=== PATIENT | female | born 1950 | race Caucasian/White ===

== ENCOUNTER → 2019-03-28 15:50 | Outpatient (CLI) | payer MEDICARE, SELFPAY ==
--- NOTE | 2019-03-28 | DI.MG.S_ITS ---
BILATERAL DIGITAL SCREENING MAMMOGRAM 3D/2D WITH CAD: 03/28/2019 CLINICAL: Routine screening. Family history of breast cancer. Comparison is made to exams dated: 07/11/2013 mammogram and 06/24/2012 mammogram - [facility]. The tissue of both breasts is heterogeneously dense. This may lower the sensitivity of mammography. Current study was also evaluated with a Computer Aided Detection (CAD) system. No significant masses, calcifications, or other findings are seen in either breast. There has been no significant interval change. IMPRESSION: NEGATIVE There is no mammographic evidence of malignancy. A 1 year screening mammogram is recommended. This exam was interpreted at Station ID: [id number]. NOTE: For mammograms, a report in lay terms will be sent to the patient. Approximately 15% of breast malignancies will not be visualized mammographically. In the management of a palpable breast mass, a negative mammogram must not discourage biopsy of a clinically suspicious lesion. Electronically Signed By: Amena beanvides/allen:03/29/2019 09:04:13 letter sent: Normal Exam ACR BI-RADS Category 1: Negative [id number]
[2019-03-28 16:27] LABS: Add Manual Diff / Slide Review NO; Basophils Absolute Auto 100 /uL (0-100); Basophils Percent Auto 1.1 % (0-2); Eosinophils Absolute Auto 100 /uL (0-450); Eosinophils Percent Auto 0.7 % (2-4); Hematocrit 44.6 % (36-46); Hemoglobin 14.8 g/dL (12.0-16.0); Lymphocytes Absolute Auto 4500 /uL (1100-4500); Lymphocytes Percent Auto 40.4 % (25-40); Mean Corpuscular HGB Conc 33.1 % (30-36); Mean Corpuscular Hemoglobin 30.1 PG (26-34); Mean Corpuscular Volume 90.9 fL (80-100); Monocytes Absolute Auto 700 /uL (0-900); Monocytes Percent Auto 5.9 % (3-14); Neutrophils Absolute Auto 5800 /uL (1500-7000); Neutrophils Percent Auto 51.9 % (50-75); Platelet Count 143 X10^3/uL (150-400); Red Cell Distribution Width 12.4 % (11.6-14.8); White Blood Cell Count 11.1 X10^3/uL (4.5-11.0)
[2019-03-28 17:27] LABS: Alanine Aminotransferase 19 IU/L (9-52); Albumin 4.5 g/dL (3.5-5.0); Albumin Globulin Ratio 1.4 (1.0-2.8); Alkaline Phosphatase 114 U/L (38-126); Aspartate Aminotransferase 22 IU/L (14-36); BUN Creatinine Ratio 18.3 (6-22); Bilirubin Total 0.5 mg/dL (0.2-1.3); Blood Urea Nitrogen 11 mg/dL (7-17); Calcium 9.9 mg/dL (8.4-10.2); Carbon Dioxide 24 mmol/L (22-32); Chloride 106 mmol/L (98-107); Cholesterol 176 mg/dL (140-199); Estimated Glomerular Filt Rate > 60.0 mL/min (>60); Globulin 3.2 g/dL (1.7-4.1); Glucose 93 mg/dL (80-110); HDL Cholesterol 50 mg/dL (40-60); HEMOLYSIS < 15 (0-50); LDL Cholesterol Calculated 98 mg/dL (<100); Potassium 4.1 mmol/L (3.4-5.1); Sodium 140 mmol/L (137-145); Total Protein 7.7 g/dL (6.3-8.2); Triglycerides 142 mg/dL (35-150)
[2019-03-28 17:57] LABS: Thyroid Stimulating Hormone 4.05 uIU/mL (0.47-4.68)
== END ==
PROVIDERS: PCP Family Medicine; Visit Provider Family Medicine
DX: Z12.31 Encounter for screening mammogram for malignant neoplasm of breast (principal); Z80.3 Family history of malignant neoplasm of breast; E78.5 Hyperlipidemia, unspecified; Z13.29 Encounter for screening for other suspected endocrine disorder; Z51.81 Encounter for therapeutic drug level monitoring
CPT/HCPCS: 36415; 77063; 77067; 80053; 80061; 84443; 85025

== ENCOUNTER → 2019-04-07 16:43 | Outpatient (ROUT) | payer MEDICARE, SELFPAY ==
[2019-04-07 17:05] LABS: Appearance Urine UA CLEAR; Bilirubin Urine UA NEGATIVE (NEGATIVE); Color Urine UA YELLOW; Glucose Urine UA NEGATIVE (Negative); Ketones Urine UA NEGATIVE (NEGATIVE); Leukocyte Esterase Urine UA NEGATIVE (NEGATIVE); Nitrite Urine UA NEGATIVE (Negative); Occult Blood Urine UA NEGATIVE (Negative); Protein Urine UA NEGATIVE (Negative); Urobilinogen Urine UA 0.2 E.U./dL (0.2); pH Urine UA 6.5 (4.5-8.0)
== END ==
PROVIDERS: PCP Family Medicine; Visit Provider Family Medicine
DX: E78.5 Hyperlipidemia, unspecified (principal); Z13.29 Encounter for screening for other suspected endocrine disorder; Z51.81 Encounter for therapeutic drug level monitoring
CPT/HCPCS: 81003

== ENCOUNTER → 2020-03-04 13:11 | Outpatient (CLI) | payer MEDICARE, SELFPAY ==
[2020-03-04 13:59] LABS: Add Manual Diff / Slide Review NO; Basophils Absolute Auto 100 /uL (0-100); Basophils Percent Auto 0.6 % (0-2); Eosinophils Absolute Auto 100 /uL (0-450); Eosinophils Percent Auto 0.7 % (2-4); Hematocrit 42.6 % (36-46); Hemoglobin 14.8 g/dL (12.0-16.0); Lymphocytes Absolute Auto 2800 /uL (1100-4500); Lymphocytes Percent Auto 29.6 % (25-40); Mean Corpuscular HGB Conc 34.8 % (30-36); Mean Corpuscular Hemoglobin 31.5 PG (26-34); Mean Corpuscular Volume 90.5 fL (80-100); Monocytes Absolute Auto 600 /uL (0-900); Monocytes Percent Auto 6.3 % (3-14); Neutrophils Absolute Auto 6000 /uL (1500-7000); Neutrophils Percent Auto 62.8 % (50-75); Platelet Count 132 X10^3/uL (150-400); Red Cell Distribution Width 12.4 % (11.6-14.8); White Blood Cell Count 9.5 X10^3/uL (4.5-11.0)
[2020-03-04 14:13] LABS: Alanine Aminotransferase 16 IU/L (<35); Albumin 4.6 g/dL (3.5-5.0); Albumin Globulin Ratio 1.4 (1.0-2.8); Alkaline Phosphatase 99 U/L (38-126); Aspartate Aminotransferase 28 IU/L (14-36); BUN Creatinine Ratio 16.9 (6-22); Bilirubin Total 0.5 mg/dL (0.2-1.3); Blood Urea Nitrogen 11 mg/dL (7-17); Calcium 10.1 mg/dL (8.4-10.2); Carbon Dioxide 29 mmol/L (22-32); Chloride 104 mmol/L (98-107); Cholesterol 178 mg/dL (140-199); Estimated Glomerular Filt Rate > 60.0 mL/min (>60); Globulin 3.4 g/dL (1.7-4.1); Glucose 128 mg/dL (80-110); HDL Cholesterol 41 mg/dL (40-60); HEMOLYSIS < 15 (0-50); LDL Cholesterol Calculated 107 mg/dL (<100); Potassium 4.6 mmol/L (3.4-5.1); Sodium 139 mmol/L (137-145); Triglycerides 149 mg/dL (35-150)
[2020-03-04 14:41] LABS: Thyroid Stimulating Hormone 0.32 uIU/mL (0.47-4.68)
== END ==
PROVIDERS: Referring Provider Family Medicine; Visit Provider Family Medicine
DX: I10 Essential (primary) hypertension (principal); E78.5 Hyperlipidemia, unspecified
CPT/HCPCS: 36415; 80053; 80061; 84443; 85025

== ENCOUNTER → 2020-03-04 15:38 | Outpatient (CLI) | payer MEDICARE, SELFPAY ==
--- NOTE | 2020-03-04 15:40 | DI.RAD.S_ITS ---
PROCEDURE: XR HIP W PEL IF DONE LT MIN 4V INDICATIONS: back/hip pain TECHNIQUE: AP pelvis with lateral view(s) of the left and right hip(s). COMPARISON: None. FINDINGS: Bones: No fractures or dislocations. Pelvic ring appears intact. No suspicious bony lesions. Lower lumbar spondylosis. Mild hip joint degeneration. Soft tissues: The visualized bowel gas pattern is normal. No suspicious soft tissue calcifications. IMPRESSION: Mild bilateral hip joint degeneration Dictated by: Keyur Butler M.D. on 03/04/2020 at 16:04 Approved by: Keyur Butler M.D. on 03/04/2020 at 16:05
--- NOTE | 2020-03-04 15:40 | DI.RAD.S_ITS ---
PROCEDURE: XR LUMBAR SPINE 2-3V INDICATIONS: back/hip pain TECHNIQUE: 3 views of the lumbar spine were acquired. COMPARISON: [facility], , L-SPINE 2-3 VIEWS, 05/09/2008, 13:00. FINDINGS: Bones: No fracture or focal osseous destruction. Multilevel degenerative endplate sclerosis and spurring. Diffuse facet arthropathy. Straightening of the normal lordotic curvature. Grade 1 anterolisthesis of L4 on L5. Moderate narrowing of the L2-L3 disc space. Mild narrowing of the remaining lumbar disc spaces. Levoscoliosis Soft tissues: Scattered vascular calcifications seen in the aorta. IMPRESSION: Multilevel lumbar spondylosis and facet arthropathy most pronounced at L2-L3. This is progressed since 05/09/08 Levoscoliosis, also progressed. Dictated by: Keyur Butler M.D. on 03/04/2020 at 16:05 Approved by: Keyur Butler M.D. on 03/04/2020 at 16:07
== END ==
PROVIDERS: PCP Family Medicine; Referring Provider Family Medicine; Visit Provider Family Medicine
DX: M47.26 Other spondylosis with radiculopathy, lumbar region (principal); M16.0 Bilateral primary osteoarthritis of hip; M25.559 Pain in unspecified hip; M41.9 Scoliosis, unspecified; M43.16 Spondylolisthesis, lumbar region
CPT/HCPCS: 72100; 73522

== ENCOUNTER → 2020-12-13 17:09 | Outpatient (CLI) | payer MEDICARE, SELFPAY ==
[2020-12-13 18:49] LABS: Alanine Aminotransferase 14 IU/L (<35); Albumin 4.4 g/dL (3.5-5.0); Albumin Globulin Ratio 1.3 (1.0-2.8); Alkaline Phosphatase 87 U/L (38-126); Aspartate Aminotransferase 24 IU/L (14-36); BUN Creatinine Ratio 24.2 (6-22); Bilirubin Total 0.2 mg/dL (0.2-1.3); Blood Urea Nitrogen 15 mg/dL (7-17); Calcium 9.9 mg/dL (8.4-10.2); Carbon Dioxide 29 mmol/L (22-32); Chloride 106 mmol/L (98-107); Cholesterol 161 mg/dL (140-199); Estimated Glomerular Filt Rate > 60.0 mL/min (>60); Globulin 3.3 g/dL (1.7-4.1); Glucose 103 mg/dL (80-110); HDL Cholesterol 46 mg/dL (40-60); HEMOLYSIS < 15 (0-50); LDL Cholesterol Calculated 89 mg/dL (<100); Sodium 139 mmol/L (137-145); Total Protein 7.7 g/dL (6.3-8.2); Triglycerides 129 mg/dL (35-150)
[2020-12-13 18:51] LABS: Hemoglobin A1C% w Est Avg Glu 5.4 % (4.0-6.0)
[2020-12-13 19:17] LABS: TSH w/ Reflex to FT4 1.76 uIU/mL (0.47-4.68)
== END ==
PROVIDERS: PCP Family Medicine; Referring Provider Family Medicine; Visit Provider Family Medicine
DX: E78.5 Hyperlipidemia, unspecified (principal); R73.09 Other abnormal glucose; I10 Essential (primary) hypertension; Z13.29 Encounter for screening for other suspected endocrine disorder
CPT/HCPCS: 36415; 80053; 80061; 83036; 84443

== ENCOUNTER → 2022-03-26 16:50 | Outpatient (CLI) | payer MEDICARE, SELFPAY ==
--- NOTE | 2022-03-26 16:52 | DI.RAD.S_ITS ---
PROCEDURE: XR CHEST 2V INDICATIONS: daily smoker, wt loss TECHNIQUE: 2 views of the chest were acquired. COMPARISON: None. FINDINGS: Surgical changes and devices: None. Lungs and pleura: Lungs are clear. No pleural effusions or pneumothorax. Mediastinum: Mediastinal contours are normal. Heart size is normal. Bones and chest wall: No suspicious bony abnormalities. Soft tissues appear unremarkable. IMPRESSION: No acute cardiopulmonary abnormality. Dictated by: George Pena M.D. on 03/26/2022 at 20:46 Approved by: George Pena M.D. on 03/26/2022 at 20:57
[2022-03-26 17:55] LABS: Add Manual Diff / Slide Review NO; Basophils Absolute Auto 100 /uL (0-100); Basophils Percent Auto 0.8 % (0-2); Eosinophils Absolute Auto 100 /uL (0-450); Eosinophils Percent Auto 0.6 % (2-4); Hematocrit 43.4 % (36-46); Hemoglobin 14.9 g/dL (12.0-16.0); Lymphocytes Absolute Auto 3100 /uL (1100-4500); Lymphocytes Percent Auto 36.2 % (25-40); Mean Corpuscular HGB Conc 34.2 % (30-36); Mean Corpuscular Hemoglobin 29.8 PG (26-34); Mean Corpuscular Volume 86.9 fL (80-100); Monocytes Absolute Auto 700 /uL (0-900); Monocytes Percent Auto 7.8 % (3-14); Neutrophils Absolute Auto 4800 /uL (1500-7000); Neutrophils Percent Auto 54.6 % (50-75); Platelet Count 178 X10^3/uL (150-400); Red Blood Cell Count 4.99 X10^6/uL (4.0-5.2); Red Cell Distribution Width 13.2 % (11.6-14.8); White Blood Cell Count 8.7 X10^3/uL (4.5-11.0)
[2022-03-26 18:54] LABS: Alanine Aminotransferase 10 IU/L (<35); Albumin 4.5 g/dL (3.5-5.0); Albumin Globulin Ratio 1.3 (1.0-2.8); Alkaline Phosphatase 111 U/L (38-126); Aspartate Aminotransferase 21 IU/L (14-36); BUN Creatinine Ratio 13.4 (6-22); Bilirubin Total 0.5 mg/dL (0.2-1.3); Blood Urea Nitrogen 13 mg/dL (7-17); Carbon Dioxide 28 mmol/L (22-32); Chloride 100 mmol/L (98-107); Estimated Glomerular Filt Rate > 60 mL/min (>60); Globulin 3.4 g/dL (1.7-4.1); Glucose 111 mg/dL (80-110); HEMOLYSIS < 15 (0-50); Potassium 3.9 mmol/L (3.4-5.1); Sodium 136 mmol/L (137-145); Total Protein 7.9 g/dL (6.3-8.2)
[2022-03-27 03:33] LABS: TSH w/ Reflex to FT4 1.98 uIU/mL (0.47-4.68)
== END ==
PROVIDERS: PCP Family Medicine; Referring Provider Family Medicine; Visit Provider Family Medicine
DX: I10 Essential (primary) hypertension (principal); E78.5 Hyperlipidemia, unspecified; F41.9 Anxiety disorder, unspecified; R63.4 Abnormal weight loss
CPT/HCPCS: 36415; 71046; 80053; 84443; 85025

== ENCOUNTER 2024-05-30 16:25 | Emergency (ER) | payer MEDICARE, SELFPAY ==
[2024-05-30 17:06] VITALS: BP 138/66; PULSE 77; RESP 16; TEMP 36.2; O2SAT 98; BMI 21.0
--- NOTE | 2024-05-30 17:35 | DI.RAD.S_ITS ---
PROCEDURE: XR HIP W PEL IF DONE RT 2V INDICATIONS: hip pain after fall 3 weeks ago TECHNIQUE: AP pelvis with lateral view(s) of the right hip(s). COMPARISON: [facility], , XR HIP W PEL IF DONE TAMMI 3TO4V, 03/04/2020, 15:36. FINDINGS: Bones: No gross acute fractures or dislocations. [id number] bilateral hip joint osteoarthritic changes are seen. No evidence of avascular necrosis of femoral head. Pelvic ring appears intact. No suspicious bony lesions. Soft tissues: The visualized bowel gas pattern is normal. No suspicious soft tissue calcifications. IMPRESSION: No gross acute right hip fracture or dislocation. [id number] bilateral hip joint osteoarthritis. No evidence of avascular necrosis. Dictated by: Robby Davis M.D. on 05/30/2024 at 18:21 Approved by: Robby Davis M.D. on 05/30/2024 at 18:22
--- NOTE | 2024-05-30 17:35 | ED.LOWEXIN ---
HPI - Extremity Injury (Lower) <Hien White PA-C - Last Filed: 05/30/24 18:36> General Chief Complaint: Extremity Injury, Lower Stated Complaint: Hip Px, Need XRay Time Seen by Provider: 05/30/24 17:29 Source: patient Mode of arrival: Family Vehicle History of Present Illness HPI Narrative: pt rolled out of bed 3 weeks ago and landed on her right hip pain since. has tried advil no help, heat, ice, topical all wit limited relief. MD complaint: hip injury and fall Place: home Related Data Previous Rx's Medication Instructions Recorded tolterodine 4 mg capsule,extended See Rx Instructions .Route 12/30/21 release 24 hr .COMPLEX #90 caps tramadol 50 mg tablet 50 mg PO BEDTIME #30 tabs 01/05/22 cyclobenzaprine 10 mg tablet See Rx Instructions .Route 01/25/24 .COMPLEX #90 tabs rosuvastatin 40 mg tablet See Rx Instructions .Route 01/25/24 .COMPLEX #90 tabs trazodone 100 mg tablet See Rx Instructions .Route 01/25/24 .COMPLEX #180 tabs lisinopril 10 1 tab PO DAILY #30 tabs 05/11/24 mg-hydrochlorothiazide 12.5 mg tablet paroxetine HCl 40 mg tablet See Rx Instructions .Route 05/11/24 .COMPLEX #30 tabs prednisolone sodium phosphate 10 10 mg PO DAILY #12 tabs 05/30/24 mg disintegrating tablet Allergies Allergy/AdvReac Type Severity Reaction Status Date / Time aspirin [ASPIRIN] Allergy Mild Verified 04/02/23 16:15 Penicillins [PENICILLINS] Allergy Mild Verified 04/02/23 16:15 Sulfa (Sulfonamide Allergy Mild Verified 04/02/23 16:15 Antibiotics) [SULFA (SULFONAMIDE ANTIBIOTICS)] sulfite [SULFITE] Allergy Mild Verified 04/02/23 16:15 bupropion [From Wellbutrin] AdvReac anxiety, Verified 04/02/23 16:15 not acting herself Review of Systems <Hien White PA-C - Last Filed: 05/30/24 18:36> Review of Systems Narrative: neg except as above Constitutional Comments: healthy, height weight proportioned female Musculoskeletal Musculoskeletal: Reports arthralgias and Reports myalgias Patient History <Hien White PA-C - Last Filed: 05/30/24 18:36> Medical History Medicare annual wellness visit, subsequent Weight loss Well adult exam Insomnia Venous stasis Seborrheic keratosis Hypertension Ganglion cyst Hypertension Overactive bladder Hyperlipemia Scoliosis Depression Surgical History Status post breast biopsy Status post hysterectomy Status post appendectomy Family History Father Heart disease Mother Hypertension Social History Smoking Status: Current every day smoker Tobacco: How many years used: 50 quit status: not considering quitting alcohol intake: never substance use type: does not use Smoking Status: Current every day smoker Exam <Hien White PA-C - Last Filed: 05/30/24 18:36> Initial Vital Signs Initial Vital Signs: Vital Signs Temperature 97.2 F L 05/30/24 17:06 Pulse Rate 77 05/30/24 17:06 Respiratory Rate 16 05/30/24 17:06 Blood Pressure 138/66 05/30/24 17:06 Pulse Oximetry 98 05/30/24 17:06 Oxygen Delivery Method Room Air 05/30/24 17:06 Const General: cooperative, healthy appearing, comfortable and well developed Nutritional Appearance: average body habitus and well nourished Orientation: Orientation Eyes Pupils: PERRL EOM: EOM intact bilaterally Neuro General: patient alert, patient oriented x3, gait normal and moves all extremities Speech: speech normal Gait: normal gait Extrem Right lower extremity: normal to inspection, normal capillary refill and hip/thigh Details: normal to inspection, tenderness (right hip and lower pelvis) and normal ROM Psych Appearance: grossly normal and well kempt Speech and Movement: speech and movement normal Mood: congruent mood Affect: normal affect Attitude: cooperative Thought Process: normal Judgment: judgment good <Geremias Barton DO - Last Filed: 05/30/24 18:42> Initial Vital Signs Initial Vital Signs: Vital Signs Temperature 97.2 F L 05/30/24 17:06 Pulse Rate 77 05/30/24 17:06 Respiratory Rate 16 05/30/24 17:06 Blood Pressure 138/66 05/30/24 17:06 Pulse Oximetry 98 05/30/24 17:06 Oxygen Delivery Method Room Air 05/30/24 17:06 Course <Hien White PA-C - Last Filed: 05/30/24 18:36> Orders Ordered: ED Orders 05/30/24 17:35 XR hip w pel if done RT 2V Stat Vital Signs Vital signs: Vital Signs - 8 hr 05/30/24 17:06 Temperature 97.2 F L Pulse Rate 77 Respiratory Rate 16 Blood Pressure 138/66 Pulse Oximetry 98 Oxygen Delivery Method Room Air <Geremias Barton DO - Last Filed: 05/30/24 18:42> Orders Ordered: ED Orders 05/30/24 17:35 XR hip w pel if done RT 2V Stat Vital Signs Vital signs: Vital Signs - 8 hr 05/30/24 17:06 Temperature 97.2 F L Pulse Rate 77 Respiratory Rate 16 Blood Pressure 138/66 Pulse Oximetry 98 Oxygen Delivery Method Room Air MDM - Extremity Injury (Lower) <Hien White PA-C - Last Filed: 05/30/24 18:36> Differential Diagnosis Differential diagnosis: Likely other (right hip bursitis) MDM Narrative Medical decision making narrative: Pt is a 73 year old female who rolled out of bed 3 weeks ago and landed on the floor hitting her right hip. Continues to have pain even after using OTC medications and topical medication. Here for xray Has not seen her PCP Pt has pain over the right bursa Exam is neg for any major findings Have discussed bursitis with marlon. Diff Diag: Right hip contusion, right hip bone bruise, hair line hip fracture, hip bursitis Discharge Plan Departure Patient Disposition: Home Clinical Impression: Bursitis of right hip Qualifiers: Hip bursitis location: trochanteric bursitis Qualified Code(s): M70.61 - Trochanteric bursitis, right hip Activity Restrictions/Additional Instructions: As tolerated Follow up with PCP may need PT referral Prescriptions: New prednisolone sodium phosphate 10 mg tablet,disintegrating 10 mg PO DAILY Qty: 12 0RF Rx Instructions: 30 mg for 2 days, 20 mg for 2 days 10 mg for 2 days No Action tolterodine 4 mg capsule,extended release 24hr See Rx Instructions .ROUTE .COMPLEX Qty: 90 3RF Hold Instructions: MUST BE SEEN Dose Instruction: TAKE 1 CAPSULE BY MOUTH AT BEDTIME Rx Instructions: TAKE 1 CAPSULE BY MOUTH AT BEDTIME tramadol 50 mg tablet 50 mg PO BEDTIME Qty: 30 1RF Rx Instructions: Take as needed at bedtime for back pain cyclobenzaprine 10 mg tablet See Rx Instructions .ROUTE .COMPLEX Qty: 90 0RF Hold Instructions: MUST BE SEEN Dose Instruction: TAKE 1 TABLET BY MOUTH AT BEDTIME NEEDED FOR MUSCLE SPASM Rx Instructions: TAKE 1 TABLET BY MOUTH AT BEDTIME NEEDED FOR MUSCLE SPASM trazodone 100 mg tablet See Rx Instructions .ROUTE .COMPLEX Qty: 180 0RF Hold Instructions: MUST BE SEEN Dose Instruction: TAKE 2 TABLETS BY MOUTH AT BEDTIME NEEDED FOR SLEEP Rx Instructions: TAKE 2 TABLETS BY MOUTH AT BEDTIME NEEDED FOR SLEEP DUE FOR APPT rosuvastatin 40 mg tablet See Rx Instructions .ROUTE .COMPLEX Qty: 90 1RF Hold Instructions: MUST BE SEEN Dose Instruction: TAKE 1 TABLET BY MOUTH DAILY Rx Instructions: TAKE 1 TABLET BY MOUTH DAILY lisinopril-hydrochlorothiazide 10-12.5 mg tablet 1 tab PO DAILY Qty: 30 0RF paroxetine HCl 40 mg tablet See Rx Instructions .ROUTE .COMPLEX Qty: 30 0RF Hold Instructions: MUST BE SEEN Dose Instruction: TAKE 1 TABLET BY MOUTH DAILY Rx Instructions: TAKE 1 TABLET BY MOUTH DAILY Referrals: Seferino Hamilton DO [Primary Care Provider] - Stand Alone Forms: Patient Portal/API ED Sign-out <Geremias Barton DO - Last Filed: 05/30/24 18:42> [facility]: Dr Barton Co-Sign Statement: I was available for consultation during this patient's emergency department visit. This chart is signed by myself for administrative purposes only. I did not have direct contact with this patient during this visit. They were seen independently by the APC.
== END 2024-05-30 18:35 | disposition home or self-care (01) ==
PROVIDERS: Emergency Provider Physician Assistant; PCP Family Medicine
DX: M70.61 Trochanteric bursitis, right hip (principal)
CPT/HCPCS: 73502; 99281; 99283